=== PATIENT | female | born 1965 | race Caucasian/White ===

== ENCOUNTER 2023-06-18 13:45 | Outpatient (RCR) | payer MEDICARE, MEDICAID, SELFPAY ==
--- NOTE | 2023-06-10 10:24 | OPREHPOC ---
Outpatient Therapy Plan of Care This is a Multidisciplinary Plan of Care that may contain components documented by all disciplines (PT, OT, and ST.) PT Problem 1 PT Problem #1 Knowledge Deficit PT Goal 1 Goal 1. Patient will perform independent HEP Target Visit 5 PT Goal 2 Goal 2. Patient will verbalize urge suppression strategies Target Visit 5 PT Problem 2 PT Problem #2 Impaired Strength PT Goal 1 Goal 1. Improve pelvic floor strength to 4/5 to decrease incontinence Target Visit 5 PT Goal 2 Goal 2. Improve pelvic floor endurance to 10 seconds to decrease incontinence Target Visit 5 PT Problem 3 PT Problem #3 Impaired Functional ADLs PT Goal 1 Goal 1. Reduce pad use to no more than 1 per day Target Visit 5 PT Goal 2 Goal 2. Reduce incontinence to no more than 3 instances per week
--- NOTE | 2023-06-10 10:24 | PTOPEVAL1 ---
Assessment and note entered by Yudith Low DPT Evaluation Information Assessment Status Evaluation Subjective Information Pt reports urinary incontinence mostly with coughing or sneezing, for about 3-4 years. Averages 3 times a day, more than a few drops . Changes clothes due to it. Wears pads, up to 3 a day. Has improved somewhat with recent weight loss . Denies pain with urination. Urinates 5 times a day and another 1 at night. Reports a lot of urgency and can only hold 30 seconds . BM usually 1 time a day, no pain. Denies a history of pelvic pain. Pt has been 2 times, 2 vaginal deliveries without complications. Partial hysterectomy in 2003. Gall bladder removed 2001. No other b/b issues. Reports inconvenience buying and using pads or having to change clothes throughout the day especially in public. Avoids going out in public due to it. Pt is not working currently. States she makes sure to go to the bathroom before grocery shopping etc. No return to MD scheduled. Patient goal: not have the leaks. Reported Pain Level Pain Score 0: Self Report Assessment PT Clinical Summary The patient is presenting to skilled therapy with a several year history of daily urinary incontinence and reports of urgency. She demonstrates decreased pelvic floor strength and endurance and overall decreased core strength which are contributing to her incontinence, urgency, and pad use. She will highly benefit from therapy to address these impairments in order to return to prior level of function. Plan of Care Interventions Manual Therapy,Neuro Re-education,Patient/ Caregiver Education,Therapeutic Activities, Therapeutic Exercise PT Services Indicated Yes Treatment Frequency and 1 time a week for 4 visits Duration These treatments will address the objective and functional deficits as defined above. The patient will be advanced safely and appropriately in order for the patient to progress towards his/her prior level of function. Additional exercises will be introduced and as well as a comprehensive home exercise program upon discharge, if needed, ?to ensure carryover of functional gains achieved in the clinic. This treatment plan has been reviewed and agreement upon by the patient.
--- NOTE | 2023-06-24 10:24 | PCPTNOTE ---
Patient canceled appointment 06/24/23 due to transportation issue and self discharged from all future appointments.
--- NOTE | 2023-06-24 10:25 | PTOPDC ---
Assessment and note entered by KEITH BrennanT Evaluation Information Assessment Status Discharge - Pt Not Present Subjective Information - Assessment PT Clinical Summary Patient is self discharging from therapy. Plan of Care PT Services Indicated No
== END 2023-06-24 11:29 | disposition home or self-care (01) ==
LOC: ANHPT 13:45
DX: N39.46 Mixed incontinence (principal)
CPT/HCPCS: 97112; 97161